=== PATIENT | female | born 2000 | race Caucasian/White ===

== ENCOUNTER 2021-09-05 09:02 | Inpatient (IN) ==
[2021-09-05] MEDS ORDERED: SODIUM CHLORIDE 0.9% 1000ML 1,000 ML IV SCH (09:30)
--- NOTE | 2021-09-05 09:35 | Emergency Department Note ---
History of Present Illness General Chief complaint: Alcohol Intoxication Stated complaint: OVERDOSE, ETOH, MHID Time Seen by Provider: 09/05/21 09:18 Source: patient, EMS, RN notes reviewed, old records reviewed and police Mode of arrival: EMS Limitations: intoxication History of Present Illness This patient is a 21-year-old female who is brought in after apparently taking an overdose intentionally. I talked to police and EMS and they were suicidal notes left. She had been drinking all night and also apparently took 7 sleep aids of diphenhydramine 50 mg at some point they did find some blue pills on the floor and also when she threw up there was some blue tinge to her emesis. She had been drinking alcohol as well. Denies any drug use. Apparently when the roommate saw her shortly before 3 she was okay and found her like this around 8:00 in the morning so the ingestion apparently took place likely sometime between 3 and 8. She denies any drug use. She is unable to give a very reliable history. She mumbles when she talks she seems to answer some questions appropriately but others not she does follow commands. Home Medications Medication Instructions Recorded Confirmed Type spironolactone 100 mg tablet 100 mg PO DAILY 05/05/19 05/05/19 History Allergies Allergy/AdvReac Type Severity Reaction Status Date / Time povidone-iodine Allergy Mild Rash Verified 05/05/19 19:25 [From Betadine] soap [From Betadine] Allergy Mild Rash Verified 05/05/19 19:25 Past Med/Surg History Medical History (Updated 09/05/21 @ 13:32 by Jeremy Abarca MD) No significant medical problems Social History Smoking Status: Unknown if ever smoked Preferred Language: Yoruba Feels Safe at Home: Yes Immunizations: Past medical historydepression. she does have a previous history of self-harm Social historyshgui is a student at [employer] Review of Systems A total of 10 systems reviewed and were otherwise negative Physical Exam Vital Signs Vital Signs - 24 hr 09/05/21 09:15 09/05/21 09:16 09/05/21 09:30 Temperature 36.4 C L Temperature Source Oral Pulse Rate 117 H 114 H 105 H Pulse Rate [Apical] Pulse Rate from SpO2 Sensor 114 H 105 H Pulse Rhythm [Apical] Pulse Strength [Apical] Respiratory Rate 22 22 16 Respiratory Effort / Characteristics Respiratory Depth Respiratory Pattern Blood Pressure 114/94 136/85 Blood Pressure [Left Arm] Blood Pressure Mean 100 102 Blood Pressure Mean [Left Arm] Pulse Oximetry 98 99 99 Oxygen Delivery Method Room Air Room Air Room Air Sepsis New/Unexplained Change in Mental Status No Sepsis Action Taken by Nursing No Action Required 09/05/21 10:00 09/05/21 12:09 09/05/21 14:00 Temperature Temperature Source Pulse Rate 98 H Pulse Rate [Apical] 110 H 99 H Pulse Rate from SpO2 Sensor 96 H Pulse Rhythm [Apical] Regular Pulse Strength [Apical] Normal Respiratory Rate 18 20 20 Respiratory Effort / Characteristics Non-Labored Spontaneous Non-Labored Spontaneous Respiratory Depth Normal Normal Respiratory Pattern Regular Blood Pressure 140/92 Blood Pressure [Left Arm] 124/95 131/81 Blood Pressure Mean 108 Blood Pressure Mean [Left Arm] 104 97 Pulse Oximetry 96 98 97 Oxygen Delivery Method Room Air Room Air Room Air Sepsis New/Unexplained Change in Mental Status Sepsis Action Taken by Nursing General: Well developed well nourished young female who is eyes are open she mumbles when she talks and answers most questions appropriately but others vaguely and incomprehensively. Her mouth does appear somewhat dry. In no acute distress, breathing comfortably on room air. Normal speech HEENT: Normal cephalic atraumatic. Pupils are equal round and reactive to light. Pupils are not dilated. Extraocular movements are intact. Oropharynx is pink with moist mucous membranes. No swelling of the mouth lips or tongue. Neck: Supple with a midline trachea. No meningeal signs or stiffness, no JVD or bruits. No Stridor. Chest: Clear to auscultation bilaterally. No wheezes or rhonchi. No increased work of breathing. Heart: Regular rate and rhythm without murmurs or gallops. Abdomen: Soft nontender, nondistended without rebound guarding or rigidity. Extremities: No cyanosis clubbing or edema. No calf tenderness or assymetry Spine/Back. Non tender to palpation. No CVA tenderness Skin: Good turgor without rashes. No flushing of the skin. Neurologic exam: Cranial nerves two through 12 are intact. Motor and sensation are intact and symmetrical throughout. Procedures Free Text Procedures ED observationthe patient was entered into the observation at 938 due to overdose and need to medically clear. She was placed on a cafeteria monitor. She has no significant family history known. She was observed for multiple hours and remained stable. Her EKG did show a mildly prolonged QT so I talked to poison center who recommended we observe her for 4 hours after I gave her the magnesium 1 g and recheck EKG and blood work as well. Her mental status improved. She will be observed till at least 4 PM. Course Administered Medications Discontinued Medications Sodium Chloride (Nss 1000ml) 1,000 mls @ 999 mls/hr IV .Q1H1M EDWARD Stop: 09/05/21 10:30 Last Infusion: 09/05/21 12:03 Dose: 0 mls/hr Documented by: [id number] Admin: 09/05/21 09:40 Dose: 999 mls/hr Documented by: [id number] Magnesium Sulfate/Dextrose (Magnesium Sulfate / D5w) 1 gm in 100 mls @ 100 mls/hr IV NOW STA Stop: 09/05/21 10:55 Last Infusion: 09/05/21 13:38 Dose: 0 mls/hr Documented by: [id number] Admin: 09/05/21 11:23 Dose: 100 mls/hr Documented by: [id number] Medical Decision Making Differential Diagnosis Overdose, suicidal ideation, aspiration, COVID, electrolyte or metabolic abnormality, acetaminophen toxicity, diphenhydramine/anticholinergic toxicity, toxicologic Medical Records Attestation: I reviewed the patient's medical records. Home Medications Current Medication List: was personally reviewed by me Laboratory Data Attestation: I reviewed the patient's lab results. Result diagrams: 09/05/21 09:38 09/05/21 09:38 Lab Results 09/05/21 09/05/21 09/05/21 Range/Units 09:37 09:38 09:38 WBC (4.8-10.8) K/uL RBC (4.2-5.4) M/uL Hgb (12.0-16.0) g/dL Hct (37-47) % MCV (80-100) fL MCH (25-34) pg MCHC (32-36) g/dL RDW Std Deviation (36.4-46.3) fL RDW Coeff of Fransisca (11.5-14.5) % Plt Count (130-400) K/uL MPV (7.4-10.4) fL Immature Gran % (Auto) % Neut % (Auto) % Lymph % (Auto) % [place] % (Auto) % Eos % (Auto) % Baso % (Auto) % Neut # (Auto) (1.4-6.5) K/uL Lymph # (Auto) (1.2-3.4) K/uL [place] # (Auto) (0.11-0.59) K/uL Eos # (Auto) (0-0.5) K/uL Baso # (Auto) (0-0.2) K/uL Immature Gran # (Auto) (0.00-0.02) K/uL PT (9.0-12.0) Seconds INR (0.9-1.1) APTT (21.0-31.0) Seconds PTT Ratio Sodium (136-145) mmol/L Potassium (3.5-5.1) mmol/L Chloride (98-107) mmol/L Carbon Dioxide (21-32) mmol/L Anion Gap (3-11) BUN (6-23) mg/dl Creatinine (0.6-1.2) mg/dl Est Cr Clr Drug Dosing Est GFR ( Amer) ml/min Est GFR (Non-Af Amer) ml/min BUN/Creatinine Ratio (10-20) Glucose (70-99(Fasting)) mg/dl POC Glucose 103 H (70-99) mg/dl Calcium (8.5-10.1) mg/dl Magnesium (1.7-2.4) mg/dl Total Bilirubin (0.2-1.0) mg/dl AST (13-39) U/L ALT (7-52) U/L Alkaline Phosphatase (34-104) U/L Troponin I (0-0.04) ng/ml Total Protein (6.0-8.3) gm/dl Albumin (3.4-5.0) gm/dl Globulin (2.5-4.0) gm/dl Albumin/Globulin Ratio (0.9-2) HCG, Qual (Negative) Salicylates < 3.0 L (3.0-30) mg/dl Urine Opiates Screen (Neg) Ur Methadone, Qual (Neg) Acetaminophen < 3 L (10-30) ug/ml Urine Barbiturates (Neg) Ur Phencyclidine (PCP) (Neg) U Amphetamin/Meth Scrn (Neg) MDMA (Ecstasy) Screen (Neg) U Benzodiazepines Scrn (Neg) Ur Cocaine Metabolite (Neg) U Marijuana (THC) Screen (Neg) Ethyl Alcohol mg/dL 138.4 H (<10.0) mg/dl SARS-CoV-2, RNA, NAAT (NEGATIVE) 09/05/21 09/05/21 09/05/21 Range/Units 09:38 09:38 09:38 WBC 3.33 L (4.8-10.8) K/uL RBC 4.31 (4.2-5.4) M/uL Hgb 13.7 (12.0-16.0) g/dL Hct 39.9 (37-47) % MCV 92.6 (80-100) fL MCH 31.8 (25-34) pg MCHC 34.3 (32-36) g/dL RDW Std Deviation 46.7 H (36.4-46.3) fL RDW Coeff of Fransisca 13.6 (11.5-14.5) % Plt Count 234 (130-400) K/uL MPV 9.5 (7.4-10.4) fL Immature Gran % (Auto) 0.0 % Neut % (Auto) 55.0 % Lymph % (Auto) 39.6 % [place] % (Auto) 4.5 % Eos % (Auto) 0.6 % Baso % (Auto) 0.3 % Neut # (Auto) 1.83 (1.4-6.5) K/uL Lymph # (Auto) 1.32 (1.2-3.4) K/uL [place] # (Auto) 0.15 (0.11-0.59) K/uL Eos # (Auto) 0.02 (0-0.5) K/uL Baso # (Auto) 0.01 (0-0.2) K/uL Immature Gran # (Auto) 0.00 (0.00-0.02) K/uL PT (9.0-12.0) Seconds INR (0.9-1.1) APTT (21.0-31.0) Seconds PTT Ratio Sodium 142 (136-145) mmol/L Potassium 3.6 (3.5-5.1) mmol/L Chloride 113 H (98-107) mmol/L Carbon Dioxide 24 (21-32) mmol/L Anion Gap 5 (3-11) BUN 7 (6-23) mg/dl Creatinine 0.54 L (0.6-1.2) mg/dl Est Cr Clr Drug Dosing Not Reportable Est GFR ( Amer) > 150.0 ml/min Est GFR (Non-Af Amer) 135.8 ml/min BUN/Creatinine Ratio 13.0 (10-20) Glucose 96 (70-99(Fasting)) mg/dl POC Glucose (70-99) mg/dl Calcium 8.3 L (8.5-10.1) mg/dl Magnesium (1.7-2.4) mg/dl Total Bilirubin 0.3 (0.2-1.0) mg/dl AST 16 (13-39) U/L ALT 10 (7-52) U/L Alkaline Phosphatase 20 L (34-104) U/L Troponin I < 0.03 (0-0.04) ng/ml Total Protein 7.2 (6.0-8.3) gm/dl Albumin 4.4 (3.4-5.0) gm/dl Globulin 2.8 (2.5-4.0) gm/dl Albumin/Globulin Ratio 1.6 (0.9-2) HCG, Qual Negative (Negative) Salicylates (3.0-30) mg/dl Urine Opiates Screen (Neg) Ur Methadone, Qual (Neg) Acetaminophen (10-30) ug/ml Urine Barbiturates (Neg) Ur Phencyclidine (PCP) (Neg) U Amphetamin/Meth Scrn (Neg) MDMA (Ecstasy) Screen (Neg) U Benzodiazepines Scrn (Neg) Ur Cocaine Metabolite (Neg) U Marijuana (THC) Screen (Neg) Ethyl Alcohol mg/dL (<10.0) mg/dl SARS-CoV-2, RNA, NAAT (NEGATIVE) 09/05/21 09/05/21 09/05/21 Range/Units 09:38 09:38 09:43 WBC (4.8-10.8) K/uL RBC (4.2-5.4) M/uL Hgb (12.0-16.0) g/dL Hct (37-47) % MCV (80-100) fL MCH (25-34) pg MCHC (32-36) g/dL RDW Std Deviation (36.4-46.3) fL RDW Coeff of Fransisca (11.5-14.5) % Plt Count (130-400) K/uL MPV (7.4-10.4) fL Immature Gran % (Auto) % Neut % (Auto) % Lymph % (Auto) % [place] % (Auto) % Eos % (Auto) % Baso % (Auto) % Neut # (Auto) (1.4-6.5) K/uL Lymph # (Auto) (1.2-3.4) K/uL [place] # (Auto) (0.11-0.59) K/uL Eos # (Auto) (0-0.5) K/uL Baso # (Auto) (0-0.2) K/uL Immature Gran # (Auto) (0.00-0.02) K/uL PT 10.7 (9.0-12.0) Seconds INR 1.1 (0.9-1.1) APTT 24.2 (21.0-31.0) Seconds PTT Ratio 0.9 Sodium (136-145) mmol/L Potassium (3.5-5.1) mmol/L Chloride (98-107) mmol/L Carbon Dioxide (21-32) mmol/L Anion Gap (3-11) BUN (6-23) mg/dl Creatinine (0.6-1.2) mg/dl Est Cr Clr Drug Dosing Est GFR ( Amer) ml/min Est GFR (Non-Af Amer) ml/min BUN/Creatinine Ratio (10-20) Glucose (70-99(Fasting)) mg/dl POC Glucose (70-99) mg/dl Calcium (8.5-10.1) mg/dl Magnesium 2.0 (1.7-2.4) mg/dl Total Bilirubin (0.2-1.0) mg/dl AST (13-39) U/L ALT (7-52) U/L Alkaline Phosphatase (34-104) U/L Troponin I (0-0.04) ng/ml Total Protein (6.0-8.3) gm/dl Albumin (3.4-5.0) gm/dl Globulin (2.5-4.0) gm/dl Albumin/Globulin Ratio (0.9-2) HCG, Qual (Negative) Salicylates (3.0-30) mg/dl Urine Opiates Screen (Neg) Ur Methadone, Qual (Neg) Acetaminophen (10-30) ug/ml Urine Barbiturates (Neg) Ur Phencyclidine (PCP) (Neg) U Amphetamin/Meth Scrn (Neg) MDMA (Ecstasy) Screen (Neg) U Benzodiazepines Scrn (Neg) Ur Cocaine Metabolite (Neg) U Marijuana (THC) Screen (Neg) Ethyl Alcohol mg/dL (<10.0) mg/dl SARS-CoV-2, RNA, NAAT NEGATIVE (NEGATIVE) 09/05/21 Range/Units 10:35 WBC (4.8-10.8) K/uL RBC (4.2-5.4) M/uL Hgb (12.0-16.0) g/dL Hct (37-47) % MCV (80-100) fL MCH (25-34) pg MCHC (32-36) g/dL RDW Std Deviation (36.4-46.3) fL RDW Coeff of Fransisca (11.5-14.5) % Plt Count (130-400) K/uL MPV (7.4-10.4) fL Immature Gran % (Auto) % Neut % (Auto) % Lymph % (Auto) % [place] % (Auto) % Eos % (Auto) % Baso % (Auto) % Neut # (Auto) (1.4-6.5) K/uL Lymph # (Auto) (1.2-3.4) K/uL [place] # (Auto) (0.11-0.59) K/uL Eos # (Auto) (0-0.5) K/uL Baso # (Auto) (0-0.2) K/uL Immature Gran # (Auto) (0.00-0.02) K/uL PT (9.0-12.0) Seconds INR (0.9-1.1) APTT (21.0-31.0) Seconds PTT Ratio Sodium (136-145) mmol/L Potassium (3.5-5.1) mmol/L Chloride (98-107) mmol/L Carbon Dioxide (21-32) mmol/L Anion Gap (3-11) BUN (6-23) mg/dl Creatinine (0.6-1.2) mg/dl Est Cr Clr Drug Dosing Est GFR ( Amer) ml/min Est GFR (Non-Af Amer) ml/min BUN/Creatinine Ratio (10-20) Glucose (70-99(Fasting)) mg/dl POC Glucose (70-99) mg/dl Calcium (8.5-10.1) mg/dl Magnesium (1.7-2.4) mg/dl Total Bilirubin (0.2-1.0) mg/dl AST (13-39) U/L ALT (7-52) U/L Alkaline Phosphatase (34-104) U/L Troponin I (0-0.04) ng/ml Total Protein (6.0-8.3) gm/dl Albumin (3.4-5.0) gm/dl Globulin (2.5-4.0) gm/dl Albumin/Globulin Ratio (0.9-2) HCG, Qual (Negative) Salicylates (3.0-30) mg/dl Urine Opiates Screen Neg (Neg) Ur Methadone, Qual Neg (Neg) Acetaminophen (10-30) ug/ml Urine Barbiturates Neg (Neg) Ur Phencyclidine (PCP) Neg (Neg) U Amphetamin/Meth Scrn Neg (Neg) MDMA (Ecstasy) Screen Neg (Neg) U Benzodiazepines Scrn Neg (Neg) Ur Cocaine Metabolite Neg (Neg) U Marijuana (THC) Screen Neg (Neg) Ethyl Alcohol mg/dL (<10.0) mg/dl SARS-CoV-2, RNA, NAAT (NEGATIVE) Imaging Data Attestation: I personally reviewed and interpreted this imaging study as follows: My Impression: Chest x-rayno acute infiltrate, failure, pneumothorax seen Radiologist's Impression: Chest X-Ray 09/05/21 09:26 SINGLE VIEW CHEST CLINICAL HISTORY: Overdose. Change in mental status. FINDINGS: An AP, portable, upright chest radiograph is obtained. No prior studies are available for comparison at the time of dictation. The cardiomediastinal silhouette is unremarkable. The lungs and pleural spaces are clear. No pneumothorax is seen. The bony thorax is grossly intact. IMPRESSION: No active disease in the chest. ACT 112: Negative or not required by law. Electronically signed by: Eulalio Anthony M.D. 09/05/2021 9:50 AM ECG Data Attestation: I personally reviewed and interpreted this ECG as follows: Indication: + toxicologic Rate (beats per minute): 108 Rhythm: + sinus tachycardia ECG Intervals/blocks: + Normal QRS, + Prolonged QT and + Normal [place] ECG ST segments: + Nonspecific ST abnormalities ECG Findings: no PACs or no PVCs Comparison ECG Date: no prior available MDM Narrative This patient comes in after apparently taking an intentional overdose. There was a suicidal notes left. She has stable vital signs she is only mildly tachycardic. She did take several sleep aids which contain Benadryl. A full toxicologic type work-up was done. Despite taking the Benadryl she does not appear to be significantly anticholinergic her pupils are not enlarged, she has no flushing of the skin. it is somewhat difficult to understand her speech which may be related to intoxication with alcohol and/or Benadryl and also a dry mouth. It is possible there are other coingestions as well. She was placed on a cardiac cafeteria monitor, IV access was established EKG and multiple blood testing was obtained for medical treatment and clearance. Blood alcohol was elevated at 138. There is nothing to suggest coingestions of Tylenol or aspirin with negative levels. EKG shows a mildly prolonged QT with a normal QRS. In light of the prolonged QT I did give 1 g of magnesium IV. She continued to be monitored. The rest of her blood work was unremarkable she looks well and is sobering up. Every time I check her she seems a lot better she was able ambulate her speech is now better. She denies that she was trying to hurt her self but we do have suicide notes. I did talk to the poison center and they recommended that we recheck a an EKG and magnesium level 4 hours after the mag was given and they feel that she needs to be monitored for 6 to 8 hours for the diphenhydramine. These will be done around 4 as a magnesium finished around noon. The patient will be signed out to Dr. Camarena who will follow-up on these and at that time she will likely be medically cleared to be further evaluated by mental health. The mother did show up and I talked her at length. The patient is doing much better she is no longer shaky her thought process has normalized. I also talked to her psychiatric family caseworker who will see her as well. Continuous cardiac monitoring: Orders placed in EMR for continuous cardiac monitoring. Upon my interpretation the patient was noted to be in sinus tachycardia with a rate of 105 Impression & Plan Overdose, Alcoholic intoxication, Depression, QT prolongation Discharge Plan Visit Data Chief Complaint: Alcohol Intoxication Stated Complaint: OVERDOSE, ETOH, MHID ED Provider: Jeremy Abarca Discharge Problem: Overdose, Alcoholic intoxication, Depression, QT prolongation Forms Stand Alone Forms: My [facility] [employer] Prescriptions Prescriptions: No Action spironolactone 100 mg Tablet 100 mg PO DAILY RF: 0 Referrals Referrals: PCP,NO [Physician] - Discharge Problem: Overdose Qualifiers: Encounter type: initial encounter Injury intent: intentional self-harm Qualified Code(s): T50.902A - Poisoning by unspecified drugs, medicaments and biological substances, intentional self-harm, initial encounter Alcoholic intoxication Qualifiers: Complication of substance-induced condition: uncomplicated Qualified Code(s): F10.920 - Alcohol use, unspecified with intoxication, uncomplicated Depression Qualifiers: Depression Type: unspecified Qualified Code(s): F32.A - Depression, unspecified
[2021-09-05 09:50] LABS: Basophils # (auto) 0.01 K/uL (0-0.2); Basophils % (auto) 0.3 %; Eosinophils # (auto) 0.02 K/uL (0-0.5); Eosinophils % (auto) 0.6 %; Hematocrit (blood only) 39.9 % (37-47); Hemoglobin 13.7 g/dL (12.0-16.0); Lymphocytes # (auto) 1.32 K/uL (1.2-3.4); Lymphocytes % (auto) 39.6 %; Mean Corpuscular Hemoglobin 31.8 pg (25-34); Mean Corpuscular Hgb Conc 34.3 g/dL (32-36); Mean Corpuscular Volume 92.6 fL (80-100); Mean Platelet Volume 9.5 fL (7.4-10.4); Monocytes # (auto) 0.15 K/uL (0.11-0.59); Monocytes % (auto) 4.5 %; Neutrophils # (auto) 1.83 K/uL (1.4-6.5); Platelet Count 234 K/uL (130-400); RDW Coefficient of Variation 13.6 % (11.5-14.5); RDW Standard Deviation 46.7 fL (36.4-46.3); Red Blood Count 4.31 M/uL (4.2-5.4); White Blood Count 3.33 K/uL (4.8-10.8)
--- NOTE | 2021-09-05 09:51 | XRay Report ---
SINGLE VIEW CHEST CLINICAL HISTORY: Overdose. Change in mental status. FINDINGS: An AP, portable, upright chest radiograph is obtained. No prior studies are available for c omparison at the time of dictation. The cardiomediastinal silhouette is unremarkable. The lungs and pleural spaces are clear. No pneumothorax is seen. The bony thorax is grossly intact. IMPRESSION: No active disease in the chest. ACT 112: Negative or not required by law. Electronically signed by: Eulalio Anthony M.D. 09/05/2021 9:50 AM
[2021-09-05 09:55] LABS: Pregnancy Test, Serum Negative (Negative)
[2021-09-05] MEDS ORDERED: MAGNESIUM SULFATE / D5W 1 GM/100 ML BAG IV STA (09:56)
[2021-09-05 10:00] LABS: INR 1.1 (0.9-1.1); Partial Thromboplastin Ratio 0.9; Partial Thromboplastin Time 24.2 Seconds (21.0-31.0); Prothrombin Time 10.7 Seconds (9.0-12.0)
[2021-09-05 10:07] LABS: Acetaminophen < 3 ug/ml (10-30); Salicylate < 3.0 mg/dl (3.0-30)
[2021-09-05 10:10] LABS: Troponin I < 0.03 ng/ml (0-0.04)
[2021-09-05 10:13] LABS: Alanine Aminotransferase 10 U/L (7-52); Albumin Globulin Ratio 1.6 (0.9-2); Albumin Level 4.4 gm/dl (3.4-5.0); Alkaline Phosphatase 20 U/L (34-104); Anion Gap 5 (3-11); Aspartate Aminotransferase 16 U/L (13-39); Bilirubin,Total 0.3 mg/dl (0.2-1.0); Blood Urea Nitrogen 7 mg/dl (6-23); Calcium 8.3 mg/dl (8.5-10.1); Carbon Dioxide 24 mmol/L (21-32); Chloride 113 mmol/L (98-107); Est GFR (African American) > 150.0 ml/min; Est GFR (Non-African American) 135.8 ml/min; Globulin 2.8 gm/dl (2.5-4.0); Glucose 96 mg/dl (70-99(Fasting)); Potassium 3.6 mmol/L (3.5-5.1); Sodium 142 mmol/L (136-145); Total Protein 7.2 gm/dl (6.0-8.3)
[2021-09-05 11:10] LABS: Amphetamines+Metham, Urine Neg (Neg); Barbiturates, Urine Neg (Neg); Benzodiazepine, Urine Neg (Neg); Cocaine, Urine Neg (Neg); MDMA (Ecstacy), Urine Neg (Neg); Methadone, Urine Neg (Neg); Opiate, Urine Neg (Neg); Phencyclidine, Urine Neg (Neg)
--- NOTE | 2021-09-05 15:16 | Emergency Department Note ---
ED Visit Note Received this patient in signout. See Dr. Abarca's note for full details. In brief, the patient evidently had some alcohol last night and attempted overdose on Benadryl tablets and was found with a suicide note by friends. Please have been involved. Basic labs obtained previously and monitored here medically. In consultation with the Poison Control Center repeat EKG and magnesium level were obtained after period of observation this afternoon. EKG with improving heart rate as well as QTC. Patient will require inpatient psychiatric care given the gravity of the findings today and concerns for self-injurious behavior. Case management was involved with placement options. Patient's mother was present. Patient was accepted to [facility] [address] for further inpatient psychiatric care. EK bpm normal sinus rhythm. No PVC or PAC. No acute ST segment elevation or depression with a QTC of 479. . : Overdose Qualifiers: Encounter type: initial encounter Injury intent: intentional self-harm Qualified Code(s): T50.902A - Poisoning by unspecified drugs, medicaments and biological substances, intentional self-harm, initial encounter Alcoholic intoxication Qualifiers: Complication of substance-induced condition: uncomplicated Qualified Code(s): F10.920 - Alcohol use, unspecified with intoxication, uncomplicated Depression Qualifiers: Depression Type: unspecified Qualified Code(s): F32.A - Depression, unspecified
[2021-09-05] MEDS ORDERED: BISMUTH SUBSALICYLATE LIQD 236 ML PO PRN (18:17)
[2021-09-05] MEDS ORDERED: ACETAMINOPHEN 325 MG TAB PO PRN (18:17)
[2021-09-05] MEDS ORDERED: MAGNESIUM HYDROXIDE SUSP 30 ML UDC PO PRN (18:17)
[2021-09-05] MEDS ORDERED: SODIUM CHLORIDE 0.65% NA SOLN 45 ML (OCEAN) PRN (18:17)
[2021-09-05] MEDS ORDERED: hydrOXYzine HCl 25 MG TAB PO PRN ×2 (18:17)
[2021-09-05] MEDS ORDERED: ALUMINUM/MAGNESIUM SUSP 30 ML UDC PO PRN (18:17)
[2021-09-05 18:22] VITALS: O2SAT 96
--- NOTE | 2021-09-06 07:25 | Electrocardiogram Report ---
Test Reason : Blood Pressure : / mmHG Vent. Rate : 108 BPM Atrial Rate : 108 BPM P-R Int : 166 ms QRS Dur : 100 ms QT Int : 384 ms P-R-T Axes : 073 087 019 degrees QTc Int : 514 ms Sinus tachycardia Possible Left atrial enlargement Incomplete right bundle branch block Nonspecific ST and T wave abnormality Abnormal ECG No previous ECGs available Confirmed by Melo Sadler ([id number]) on 09/06/2021 7:25:37 AM Referred By: Confirmed By:Lino Sadler
--- NOTE | 2021-09-06 07:31 | Electrocardiogram Report ---
Test Reason : Blood Pressure : / mmHG Vent. Rate : 084 BPM Atrial Rate : 084 BPM P-R Int : 156 ms QRS Dur : 098 ms QT Int : 406 ms P-R-T Axes : 064 079 054 degrees QTc Int : 479 ms Normal sinus rhythm Possible Left atrial enlargement Incomplete right bundle branch block Nonspecific T wave abnormality Prolonged QT Abnormal ECG When compared with ECG of 05-SEP-2021 09:40, (unconfirmed) ST no longer depressed in Lateral leads Confirmed by Melo Sadler ([id number]) on 09/06/2021 7:31:06 AM Referred By: REFERRED SELF Confirmed By:Lino Sadler
--- NOTE | 2021-09-06 10:39 | History & Physical ---
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 Diagnostically consistent with MDD with seasonal component as well as alcohol use disorder binge drinking pattern and social anxiety disorder. The patient is deemed unstable and requires psychiatric hospitalization for diagnostic clarification, safety and stabilization, medication management and development of further coping skills. The patient's audit score use history suggests problematic substance use. Brief intervention was offered and accepted. Intervention was greater than 5 minutes in length and included assessing readiness to quit, advice on how to reduce or abstain and to set a specific goal for this hospitalization. fast foods worker will also assist in anticipating barriers to reducing or abstaining from substance use and in problem-solving for solutions to those problems while arranging for referral to appropriate treatment. The patient is in action stage with regards to transtheoretical model of change. The patient is advised to decrease consumption due to depressant effects and risk of interaction with prescription medications. The patient agreed to reduce her intake of alcohol and will be provided with recovery materials to continue to educate self on how to cope with their condition without using substances. We also reviewed that naltrexone could be used to help reduce alcohol consumption if she struggles to cut down on her use and needs additional help. Reviewed treatment options in detail. Discussed using a bright light lamp to help with seasonal mood symptoms. Also discussed importance of therapy which she agreeable to. Also discussed medication options including SSRIs, mirtazapine, trazodone or Wellbutrin to treat depression, anxiety and nicotine use. At this time she does not want to start medication for her mood symptoms. Reviewed that should she become interested we can continue discussion of risks and benefits. She is agreeable to trying melatonin for help with insomnia. At this point I feel she can refuse medication given that some of her depressive symptoms are more atypical and may have contribution from alcohol use and difficulty discussing emotions. Also reasonable given elevated QTc in setting of recent overdose. Will focus on therapy and coping skills interventions for now. (1) Major depressive disorder, recurrent episode with seasonal pattern: (2) Alcohol dependence, binge pattern: 09/06/21: The patient was admitted to the [facility] ([facility] unit) on q15 min checks (behavioral with suicide precautions) for safety. The patient will participate in group, recreational, and milieu therapies and will be offer ed additional individual and family sessions as clinically appropriate. -melatonin 3 mg qhs prn for insomnia -nicotine replacement gum prn -therapy referrals -safety planning -continue motivational interviewing regarding alcohol use -repeat EKG on 09/08 to ensure trending improvement in QTc Inventory Assets Strengths: close friends, likes school, supportive family Needs: outpatient therapy, additional coping skills, substance use treatment Risk Factors Assessment Acute risk is high given suicide attempt and mood symptoms. Chronic risk is low to moderate. Most significant modifiable risk factor is addressing mood symptoms and reducing or eliminating alcohol use. : Yes Do You Have Access To A Gun?: No Health Problems: No Mental Health Diagnoses: Yes Substance Use Disorders: Yes Previous Attempt: Yes Family History of Suicide: No Previous Psychiatric Hospitalization: No Hopelessness: No Protective Factors Assessment Employed: Yes Stable Relationships: Yes Supportive Family: Yes Psychiatric History Identifying Data SIDNEY DEL REAL is a 21-year-old woman and [employer] who currently lives in an off-campus apartment, has a history of depression and anxiety, and was admitted on 09/05/21 18:17 on a 201 voluntary commitment for suicide attempt via overdose of alcohol and diphenhydramine. Chief Complaint "I'm not exactly sure what happened, I can't remember anything after Tuesday night at the [employer]". History of Present Illness Sidney presents for psychiatric admission after a suicide attempt. She recalls going to a friend's birthday [employer] on Tuesday night and drinking her usual amount of alcohol with friends but then cannot recall returning to her apartment or the events that subsequently transpired. Based on discussions after arriving to the ED she understands that she returned to her apartment early on Tuesday morning after drinking and then in the morning she was found by her roommate and was throwing up and choking so her roommate called 911. On arrival police and paramedics found that Sidney had written various suicide notes on post-its beside her bed and stated she had taken approximately 7-10 tabs of an OTC sleep aid containing diphenhydramine. On assessment in the ED after she became clinically sober and medically stabilized she endorsed some symptoms of depression including tearfulness, helplessness/hopelessness, low self-esteem, poor functioning and decreased motivation. Today she describes feeling "overwhelmed and stressed" from the attempt and becomes tearful describing feeling "guilty" for putting her friends and family through the fear and scariness of her attempt. She does not recall the content of the suicide notes nor have any more recollections regarding the attempt. She notes she has no idea what may have prompted it as she doesn't recall any specific stressors or triggers besides being intoxicated. She endorses some depression, which gets worse in the winter months, but states "it's not 24/7". Today denies hopelessness, helplessness but does endorse symptoms of worthlessness, periods of guilt, insomnia, variable appetite. Denies changes in interest, concentration, energy level, nor motivation. She recalls one prior episode of SI which was passive and occurred about 2 months ago after a friend was talking her own SI. She was able to distract herself by spending time with friends and it went away. She denies any prior attempts. Reviewed that a roommate had shared with emergency responders that about 1 month ago she took the screen out of her third floor window while intoxicated and was talking about considering jumping. She did not know that this had occurred. She identifies the only recent stressors as colder weather and an unexpected break-up about 3 months ago with her boyfriend who was a big emotional support. She also notes difficulty talking about her emotions and that "it's hard to put words to what I'm feeling". Psychiatric ROS notable for no hx lise, no hx lise, no hx OCD, hx social anxiety, hx panic attacks (last in high school), no hx trauma, no hx psychosis, no hx eating disorder. Past Psychiatric History Previous Psych History: none Outpatient Services: none Previous Psych Admissions: n/a Do You Have Access To A Gun?: No History of Previous Suicide Attempt: No Past Medication Trials: none Past Head Trauma/Neuro History History of Concussion/Seizure: No Allergies Allergy/AdvReac Type Severity Reaction Status Date / Time povidone-iodine Allergy Mild Rash Verified 05/05/19 19:25 [From Betadine] soap [From Betadine] Allergy Mild Rash Verified 05/05/19 19:25 Home Medications Medication Instructions Recorded Confirmed Type spironolactone 100 mg tablet 100 mg PO DAILY 05/05/19 05/05/19 History Family History Family History of: None Alcohol History Hx of Alcohol Use Over the Past 12 Months: Yes (2x weekly) AUDIT Total Score: 9 Smoking Use tobacco type: e-cigarettes Smoking Status: Current every day smoker (vapes) Substance History Hx of Prescription Med Misuse Over the Past 12 Months: No Hx of Over the Counter Med Misuse Over the Past 12 Months: No Hx of Inhalent Misuse Over the Past 12 Months: No Hx of Organic Substance Use Over the Past 12 Months: No Hx of Illegal Substances/Street Drug Use Over Past 12 Months: No Problems as a Result of Past Substance Use: None Identified Personal History Living Arrangements: Apartment Childhood: Grew up in [place] and then [place]. 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 Required: No Beliefs That Will Affect Care: None Feels Safe at Home: Yes Assistive Devices: None Review of Systems Review of Systems: All systems reviewed & are unremarkable except as noted in HPI & below Physical Exam Psychiatric: Orientation: alert Apperance: appropriately dressed and appropriately groomed Eye Contact: good eye contact Motor Behavior: no abnormal motor movements Speech: normal rate/rhythm/volume of speech Affect: + tearful affect Mood: + depressed mood and + anxious mood Thought Process: goal directed thought process Thought Content: reality based without delusions Suicidal Thoughts: denies suicidal thoughts Homicidal Thoughts: denies homicidal thoughts Hallucinations: no auditory hallucinations and no visual hallucinations Cognition: remote memory grossly intact, attention grossly intact and language grossly intact; + recent memory not intact Estimated Intelligence: consistent with education level Insight: + fair insight Judgement: + fair judgement Vital Signs (Past 24 Hours): Last Vital Signs Temp 36.8 C 09/06/21 06:32 Pulse 80 09/06/21 06:33 Resp 16 09/06/21 06:32 BP 105/72 09/06/21 06:33 Pulse Ox 96 09/05/21 18:21 Exam Statement: A physical exam was performed in the ED by Dr. Abarca for the purposes of medical clearance. I accept that physical as correct and adequate for the purposes of the inpatient physical exam. Results & Data ([facility]) Laboratory Results Laboratory Results - last 24 hr 09/05/21 09/05/21 09/05/21 09:38 10:35 16:03 Magnesium 2.0 2.0 Urine Opiates Screen Neg Ur Methadone, Qual Neg Urine Barbiturates Neg Ur Phencyclidine (PCP) Neg U Amphetamin/Meth Scrn Neg MDMA (Ecstasy) Screen Neg U Benzodiazepines Scrn Neg Ur Cocaine Metabolite Neg U Marijuana (THC) Screen Neg Diagnostic Findings Reviewed EKG, QTc 479 Current Inpatient Medications Current Inpatient Medications: Current Inpatient Medications Acetaminophen (Acetaminophen 325 Mg Tab) 650 mg PO Q4H PRN PRN Reason: Headache or Minor Fever Stop: 10/05/21 18:16 Al Hydrox/Mg Hydrox/Simethicone (Aluminum/Magnesium Susp 30 Ml Udc) 30 ml PO Q 4H PRN PRN Reason: GI Upset Stop: 10/05/21 18:16 Bismuth Subsalicylate (Bismuth Subsalicylate Liqd 236 Ml) 15 ml PO PRN PRN PRN Reason: Loose Stool Stop: 10/05/21 18:16 Hydroxyzine HCl (Hydroxyzine Hcl 25 Mg Tab) 50 mg PO HSZ PRN PRN Reason: Insomnia Stop: 10/05/21 18:16 Hydroxyzine HCl (Hydroxyzine Hcl 25 Mg Tab) 25 mg PO Q4H PRN PRN Reason: Anxiety Stop: 10/05/21 18:16 Magnesium Hydroxide (Magnesium Hydroxide Susp 30 Ml Udc) 30 ml PO DAILY PRN PRN Reason: Constipation Stop: 10/05/21 18:16 Sodium Chloride (Sodium Chloride 0.65% Na Soln 45 Ml ([place])) 1 - 2 sprays NA PRN PRN PRN Reason: Nasal Dryness/Congestion Stop: 10/05/21 18:16
[2021-09-06] MEDS ORDERED: NICOTINE POLACRILEX 2 MG GUM MT PRN (12:03)
[2021-09-06] MEDS ORDERED: MELATONIN 3 MG TAB PO PRN (12:03)
--- NOTE | 2021-09-07 15:23 | Psychiatric Progress Note ---
Date of Service September 07, 2021 Impression / Recommendations Impression The patient is a 21 year old [employer] student with no psychiatric history who was admitted for depression and suicide attempt via alcohol and diphenhydramine ingestion. Diagnostically consistent with MDD with seasonal component as well as alcohol use disorder binge drinking pattern and social anxiety disorder. The patient is deemed unstable and requires psychiatric hospitalization for diagnostic clarification, safety and stabilization, medication management and development of further coping skills. 09/07/21: Mood slowly improving and no current SI, remains isolative which could be from her social anxiety but also still tearful intermittently. Family meeting scheduled for tomorrow. She declines medications. Working to set up outpatient therapy. Continuing to do motivational interviewing regarding alcohol use and how this impacts her mood and decision making. (1) Major depressive disorder, recurrent episode with seasonal pattern: (2) Alcohol dependence, binge pattern: 09/07/21: Working on coping skills and healthy ways to express emotions. Completed safety plan. Willing to cut down and limit her alcohol use. 09/06/21: The patient was admitted to the [facility] ([facility] mental health unit) on q15 min checks (behavioral with suicide precautions) for safety. The patient will participate in group, recreational, and milieu therapies and will be offere d additional individual and family sessions as clinically appropriate. -melatonin 3 mg qhs prn for insomnia -nicotine replacement gum prn -therapy referrals -safety planning -continue motivational interviewing regarding alcohol use -repeat EKG on 09/08 to ensure trending improvement in QTc Inventory Assets Strengths: close friends, likes school, supportive family Needs: outpatient therapy, additional coping skills, substance use treatment Risk Factors Assessment : Yes Do You Have Access To A Gun?: No Health Problems: No Mental Health Diagnoses: Yes Substance Use Disorders: Yes Previous Attempt: Yes Family History of Suicide: No Previous Psychiatric Hospitalization: No Hopelessness: No Protective Factors Assessment Employed: Yes Stable Relationships: Yes Supportive Family: Yes Interval History Identifying Information SIDNEY DEL REAL is a 21-year-old woman and [employer] who currently lives in an off-campus apartment, has a history of depression and anxiety, and was admitted on 09/05/21 18:17 on a 201 voluntary commitment for suicide attempt via overdose of alcohol and diphenhydramine. Chief Complaint "I'm feeling a bit better". Review of Systems Sleep Information Total Hours of Sleep: 7.75 Sleep Comments: pt on q-15 minute checks Meal Information Percent Meal Consumed - Breakfast: 0 Percent Meal Consumed - Lunch: 100 Percent Meal Consumed - Dinner: 100 Subjective Subjective Patient was seen & assessed and interval progress reviewed with treatment team nursing and social work. Isolative to her room but has been engaging one-on-one with staff. She reports improving mood and denies any current SI. Discussed role of alcohol and she is motivated to avoid or limit alcohol use after discharge. She remains in agreement with plan for outpatient therapy, is not interested in starting any medications for mood or anxiety or alcohol use as she feels she will be able to avoid or limit her intake and feels her friends will be supportive of this. Feels she is well supported in terms of her eating and declines resources for eating disorder support after discharge, reviewed that [employer] program is a good resource should she later feel she needs more support. Feels she is becoming more comfortable with being on the unit and social anxiety is lessening a bit. Physical Exam Psychiatric Orientation: alert Apperance: appropriately dressed and appropriately groomed Eye Contact: good eye contact Motor Behavior: no abnormal motor movements Speech: normal rate/rhythm/volume of speech Affect: + tearful affect Mood: + depressed mood and + anxious mood Thought Process: goal directed thought process Thought Content: reality based without delusions Suicidal Thoughts: denies suicidal thoughts Homicidal Thoughts: denies homicidal thoughts Hallucinations: no auditory hallucinations and no visual hallucinations Cognition: recent memory grossly intact, remote memory grossly intact, attention grossly intact and language grossly intact Estimated Intelligence: consistent with education level Insight: + fair insight Judgement: + fair judgement Vital Signs (Past 24 Hours) Last Vital Signs Temp 36.9 C 09/07/21 06:42 Pulse 99 H 09/07/21 06:43 Resp 16 09/07/21 06:42 BP 115/76 09/07/21 06:43 Pulse Ox 96 09/05/21 18:21 Results & Data ([facility]) Current Inpatient Medications Current Inpatient Medications: Current Inpatient Medications Acetaminophen (Acetaminophen 325 Mg Tab) 650 mg PO Q4H PRN PRN Reason: Headache or Minor Fever Stop: 10/05/21 18:16 Al Hydrox/Mg Hydrox/Simethicone (Aluminum/Magnesium Susp 30 Ml Udc) 30 ml PO Q4H PRN PRN Reason: GI Upset Stop: 10/05/21 18:16 Bismuth Subsalicylate (Bismuth Subsalicylate Liqd 236 Ml) 15 ml PO PRN PRN PRN Reason: Loose Stool Stop: 10/05/21 18:16 Hydroxyzine HCl (Hydroxyzine Hcl 25 Mg Tab) 50 mg PO HSZ PRN PRN Reason: Insomnia Stop: 10/05/21 18:16 Hydroxyzine HCl (Hydroxyzine Hcl 25 Mg Tab) 25 mg PO Q4H PRN PRN Reason: Anxiety Stop: 10/05/21 18:16 Magnesium Hydroxide (Magnesium Hydroxide Susp 30 Ml Udc) 30 ml PO DAILY PRN PRN Reason: Constipation Stop: 10/05/21 18:16 Melatonin (Melatonin 3 Mg Tab) 3 mg PO HS PRN PRN Reason: Sleep Stop: 10/06/21 12:02 Nicotine Polacrilex (Nicotine Polacrilex 2 Mg Gum) 1 piece MT PRN PRN PRN Reason: nicotine craving Stop: 10/06/21 12:02 Last Admin: 09/06/21 18:01 Dose: 1 piece Documented by: Sodium Chloride (Sodium Chloride 0.65% Na Soln 45 Ml ([place])) 1 - 2 sprays NA PRN PRN PRN Reason: Nasal Dryness/Congestion Stop: 10/05/21 18:16 Mental Health & Subst Abuse Tx Therapist Name of Therapist: B[facility] Therapist's Date of Therapist Appointment: 09/14/21 Time of Therapist Appointment: 4:30 p.m. Therapy Appointment Comment: In office - [address] [place] [address], [address], [place] Post Discharge Appointments Primary Care Physician Name Of Family Doctor: [facility] Date of Appointment with PCP: 09/15/21 Time of Appointment with PCP: 11am Provider Appointment Comment: [facility] Contact Information Discharge Discharge Address: [address] [place] [address], [place] [address]
--- NOTE | 2021-09-08 12:23 | Electrocardiogram Report ---
Test Reason : Blood Pressure : / mmHG Vent. Rate : 065 BPM Atrial Rate : 065 BPM P-R Int : 138 ms QRS Dur : 098 ms QT Int : 414 ms P-R-T Axes : 056 090 077 degrees QTc Int : 430 ms Normal sinus rhythm Rightward axis Incomplete right bundle branch block Borderline ECG When compared with ECG of 05-SEP-2021 15:59, Nonspecific T wave abnormality no longer evident in Inferior leads T wave inversion no longer evident in Anterior leads QT has shortened Confirmed by Melo Sadler ([id number]) on 09/08/2021 12:22:37 PM Referred By: REFERRED SELF Confirmed By:Lino Sadler
--- NOTE | 2021-09-08 15:30 | Psychiatric Progress Note ---
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 Diagnostically consistent with MDD with seasonal component as well as alcohol use disorder binge drinking pattern and social anxiety disorder. The patient is deemed unstable and requires psychiatric hospitalization for diagnostic clarification, safety and stabilization, medication management and development of further coping skills. 09/08/21: Mood improving and no SI, less isolative today-participating in groups and individual counseling and brighter affect today with increased self- reflection. She declines medications, continues to prefer trying therapy first. Reviewed medication options, SSRIs, should she desire these in the future and t hat EKG QTc is now normal which is reassuring should she desire to start medication in the future. Continuing motivational interviewing regarding alcohol use which she is motivated to cut down on or avoid completely. (1) Major depressive disorder, recurrent episode with seasonal pattern: (2) Alcohol dependence, binge pattern: 09/08/21: Family meeting held. Continuing to process events leading to attempt and hospitalization and working on CBT skills and coping strategies. Discussed ways to process hospitalization and events with her friends and famil y. EKG completed and QTc now within normal limits. 09/07/21: Working on coping skills and healthy ways to express emotions. Completed safety plan. Willing to cut down and limit her alcohol use. 09/06/21: The patient was admitted to the [facility] ([facility] mental health unit) on q15 min checks (behavioral with suicide precautions) for safety. The patient will participate in group, recreational, and milieu therapies and will be offered additional individual and family sessions as clinically appropriate. -melatonin 3 mg qhs prn for insomnia -nicotine replacement gum prn -therapy referrals -safety planning -continue motivational interviewing regarding alcohol use -repeat EKG on 09/08 to ensure trending improvement in QTc Inventory Assets Strengths: close friends, likes school, supportive family Needs: outpatient therapy, additional coping skills, substance use treatment Risk Factors Assessment : Yes Do You Have Access To A Gun?: No Health Problems: No Mental Health Diagnoses: Yes Substance Use Disorders: Yes Previous Attempt: Yes Family History of Suicide: No Previous Psychiatric Hospitalization: No Hopelessness: No Protective Factors Assessment Employed: Yes Stable Relationships: Yes Supportive Family: Yes Interval History Identifying Information SIDNEY DEL REAL is a 21-year-old woman and [employer] who currently lives in an off-campus apartment, has a history of depression and anxiety, and was admitted on 09/05/21 18:17 on a 201 voluntary commitment for suicide attempt via overdose of alcohol and diphenhydramine. Chief Complaint "I'm good". Review of Systems Sleep Information Total Hours of Sleep: 7.5 Sleep Comments: pt on q-15 minute checks Meal Information Percent Meal Consumed - Breakfast: 100 Percent Meal Consumed - Lunch: 75 Percent Meal Consumed - Dinner: 100 Subjective Subjective Patient was seen & assessed and interval progress reviewed with treatment team nursing and social work. Tearful last night but no SI. Today had family meeting which she feels went well. She reviewed suicide notes and processed this with our unit counselor. She wasn't sure what to expect from the suicide notes but felt like they didn't give a reason which adds a bit to the uncertainty of knowing why the events transpired as they did. We spent time processing this and what will be different in the future including having her safety plan and starting therapy. She feels like it's been helpful to process her emotions and that this will help her better understand her behaviors. Continues to deny any SI or thoughts of self-harm. She remains motivated to avoid alcohol use or significantly limit intake after discharge. Physical Exam Psychiatric Orientation: alert Apperance: appropriately dressed and appropriately groomed Eye Contact: good eye contact Motor Behavior: no abnormal motor movements Speech: normal rate/rhythm/volume of speech Affect: euthymic affect Mood: no depressed mood and no anxious mood Thought Process: goal directed thought process Thought Content: reality based without delusions Suicidal Thoughts: denies suicidal thoughts Homicidal Thoughts: denies homicidal thoughts Hallucinations: no auditory hallucinations and no visual hallucinations Cognition: recent memory grossly intact, remote memory grossly intact, attention grossly intact and language grossly intact Estimated Intelligence: consistent with education level Insight: + fair insight Judgement: + fair judgement Vital Signs (Past 24 Hours) Last Vital Signs Temp 36.8 C 09/08/21 06:32 Pulse 91 H 09/08/21 06:32 Resp 16 09/08/21 06:32 BP 104/68 09/08/21 06:32 Pulse Ox 96 09/05/21 18:21 Results & Data ([facility]) Current Inpatient Medications Current Inpatient Medications: Current Inpatient Medications Acetaminophen (Acetaminophen 325 Mg Tab) 650 mg PO Q4H PRN PRN Reason: Headache or Minor Fever Stop: 10/05/21 18:16 Al Hydrox/Mg Hydrox/Simethicone (Aluminum/Magnesium Susp 30 Ml Udc) 30 ml PO Q4H PRN PRN Reason: GI Upset Stop: 10/05/21 18:16 Bismuth Subsalicylate (Bismuth Subsalicylate Liqd 236 Ml) 15 ml PO PRN PRN PRN Reason: Loose Stool Stop: 10/05/21 18:16 Hydroxyzine HCl (Hydroxyzine Hcl 25 Mg Tab) 50 mg PO HSZ PRN PRN Reason: Insomnia Stop: 10/05/21 18:16 Hydroxyzine HCl (Hydroxyzine Hcl 25 Mg Tab) 25 mg PO Q4H PRN PRN Reason: Anxiety Stop: 10/05/21 18:16 Magnesium Hydroxide (Magnesium Hydroxide Susp 30 Ml Udc) 30 ml PO DAILY PRN PRN Reason: Constipation Stop: 10/05/21 18:16 Melatonin (Melatonin 3 Mg Tab) 3 mg PO HS PRN PRN Reason: Sleep Stop: 10/06/21 12:02 Nicotine Polacrilex (Nicotine Polacrilex 2 Mg Gum) 1 piece MT PRN PRN PRN Reason: nicotine craving Stop: 10/06/21 12:02 Last Admin: 09/06/21 18:01 Dose: 1 piece Documented by: Sodium Chloride (Sodium Chloride 0.65% Na Soln 45 Ml ([place])) 1 - 2 sprays NA PRN PRN PRN Reason: Nasal Dryness/Congestion Stop: 10/05/21 18:16 Mental Health & Subst Abuse Tx Therapist Name of Therapist: [facility] Therapist's Date of Therapist Appointment: 09/14/21 Time of Therapist Appointment: 4:30 p.m. Therapy Appointment Comment: In office - [address] [place] [address], [address], [place] [facility] Discharge Appointments Primary Care Physician Name Of Family Doctor: Bonnie - Dr. [facility] Date of Appointment with PCP: 09/15/21 Time of Appointment with PCP: 11am Provider Appointment Comment: [facility] Contact Information Discharge Discharge Address: [address] [place] [address], [facility]
[2021-09-09 06:11] VITALS: TEMP 97.7
--- NOTE | 2021-09-09 09:49 | Discharge Summary ---
Date of Service September 09, 2021 History of Present Illness Ann presents for psychiatric admission after a suicide attempt. She recalls going to a friend's birthday democr[place] on Tuesday night and drinking her usual amount of alcohol with friends but then cannot recall returning to her apartment or the events that subsequently transpired. Based on discussions after arriving to the ED she understands that she returned to her apartment early on Tuesday morning after drinking and then in the morning she was found by her roommate and was throwing up and choking so her roommate called 911. On arrival police and paramedics found that Ann had written various suicide notes on post-its beside her bed and stated she had taken approximately 7-10 tabs of an OTC sleep aid containing diphenhydramine. On assessment in the ED after she became clinically sober and medically stabilized she endorsed some symptoms of depression including tearfulness, helplessness/hopelessness, low self-esteem, poor functioning and decreased motivation. Today she describes feeling "overwhelmed and stressed" from the attempt and bec omes tearful describing feeling "guilty" for putting her friends and family through the fear and scariness of her attempt. She does not recall the content of the suicide notes nor have any more recollections regarding the attempt. She notes she has no idea what may have prompted it as she doesn't recall any specific stressors or triggers besides being intoxicated. She endorses some depression, which gets worse in the winter months, but states "it's not 24/7". Today denies hopelessness, helplessness but does endorse symptoms of worthlessness, periods of guilt, insomnia, variable appetite. Denies changes in interest, concentration, energy level, nor motivation. She recalls one prior episode of SI which was passive and occurred about 2 months ago after a friend was talking her own SI. She was able to distract herself by spending time with friends and it went away. She denies any prior attempts. Reviewed that a roommate had shared with emergency responders that about 1 month ago she took t he screen out of her third floor window while intoxicated and was talking about considering jumping. She did not know that this had occurred. She identifies the only recent stressors as colder weather and an unexpected break-up about 3 months ago with her boyfriend who was a big emotional support. She also notes difficulty talking about her emotions and that "it's hard to put words to what I'm feeling". Psychiatric ROS notable for no hx lise, no hx lise, no hx OCD, hx social anxiety, hx panic attacks (last in high school), no hx trauma, no hx psychosis, no hx eating disorder. Physical Exam Vital Signs (Past 24 Hours) Last Vital Signs Temp 36.5 C 09/09/21 06:00 Pulse 99 H 09/09/21 06:10 Resp 16 09/09/21 06:00 BP 101/65 09/09/21 06:10 Pulse Ox 96 09/05/21 18:21 See admission H&P and DOD summary. Principal Diagnosis Major Depressive Disorder, recurrent episode with seasonal pattern Psychiatric Data See daily stay summary. In short, patient was engaged with the social/therapeutic milieu of the unit, safety was maintained and the patient was cooperative with care. Ann declined starting any medications during her stay; discussed option to consider SSRI medication in the future for anxiety and depression, melatonin if desired for insomnia or she could consider mirtazapine or trazodone and also reviewed medication assisted treatment options including naltrexone or acamprosate which could be considered if she has difficulty reducing her alcohol use. Also reviewed recommendations regarding use of bright light therapy from early April through late December to help manage seasonal component of her depression. A family session was held and safety plan was completed prior to discharge. We also reviewed the option to use a mobile melissa sa fety plan to ensure it is easily accessible if or when needed in the future. As part of safety planning confirmed that sleep aid medication was removed from her apartment. She had an outpatient therapy appointment set up but on the morning of discharge we were notified that her insurance was not accepted by this provider. Ann still desired to leave and her parents were in agreement with this. She was provided with information about telehealth therapy resources and calls were made requesting that [facility] review her for possible referral to begin with one of their therapists if appropriate and available. If so [facility] will reach out to Ann to schedule this. Motivational interviewing was done throughout her admission and Ann is motivated to reduce or avoid alcohol use after discharge. Day of Discharge Assessment Today the patient voices readiness for discharge. They note improvement in mood and anxiety. They deny thoughts of harm to self or others. Thoughts are organized and they are clinically improved from admission. There is no evidence of psychosis. They improved in the hospital with support. They agree to take medications as prescribed and keep follow-up appointments. At the time of the discharge they are deemed to be stable and appropriate for outpatient level of care. They are not deemed to be at imminent risk of harm to self or others. They are aware of emergency and crisis services. Knows to call 911 or go to nearest emergency care center if in a crisis which cannot be handled as an outpatient. Transition of Care Transition Of Care Record: was reviewed with the patient Advance Directives Advance Directives Information Provided: Yes Advance Directives: No Mental Health Advance Directive: No Advance Directives on File: No Living Will: No Power of Music Library Assistant: No Advance Directives Reason:: Declines as Mental Health Visit. Risk Factors Assessment Acute risk is low given consistent denial of SI during her admission, improvement in mood and affect, engagement with safety planning and willingness to avoid or reduce alcohol use after discharge. Chronic risk is low to moderate given a few non-modifiable risk factors of prior attempt and psychiatric diagnoses but she also has a multitude of protective factors including strong social support, full-time student and no hx of trauma. : Yes Do You Have Access To A Gun?: No Health Problems: No Mental Health Diagnoses: Yes Substance Use Disorders: Yes Previous Attempt: Yes Family History of Suicide: No Previous Psychiatric Hospitalization: No Hopelessness: No Protective Factors Assessment Employed: Yes Stable Relationships: Yes Supportive Family: Yes Discharge Data Lab Results 09/05/21 09/05/21 09/05/21 09:37 09:38 09:38 WBC RBC Hgb Hct MCV MCH MCHC RDW Std Deviation RDW Coeff of Fransisca Plt Count MPV Immature Gran % (Auto) Neut % (Auto) Lymph % (Auto) [place] % (Auto) Eos % (Auto) Baso % (Auto) Neut # (Auto) Lymph # (Auto) [place] # (Auto) Eos # (Auto) Baso # (Auto) Immature Gran # (Auto) PT INR APTT PTT Ratio Sodium Potassium Chloride Carbon Dioxide Anion Gap BUN Creatinine Est Cr Clr Drug Dosing Est GFR ( Amer) Est GFR (Non-Af Amer) BUN/Creatinine Ratio Glucose POC Glucose 103 H Calcium Magnesium Total Bilirubin AST ALT Alkaline Phosphatase Troponin I Total Protein Albumin Globulin Albumin/Globulin Ratio HCG, Qual Salicylates < 3.0 L Urine Opiates Screen Ur Methadone, Qual Acetaminophen < 3 L Urine Barbiturates Ur Phencyclidine (PCP) U Amphetamin/Meth Scrn MDMA (Ecstasy) Screen U Benzodiazepines Scrn Ur Cocaine Metabolite U Marijuana (THC) Screen Ethyl Alcohol mg/dL 138.4 H SARS-CoV-2, RNA, NAAT 09/05/21 09/05/21 09/05/21 09:38 09:38 09:38 WBC 3.33 L RBC 4.31 Hgb 13.7 Hct 39.9 MCV 92.6 MCH 31.8 MCHC 34.3 RDW Std Deviation 46.7 H RDW Coeff of Fransisca 13.6 Plt Count 234 MPV 9.5 Immature Gran % (Auto) 0.0 Neut % (Auto) 55.0 Lymph % (Auto) 39.6 [place] % (Auto) 4.5 Eos % (Auto) 0.6 Baso % (Auto) 0.3 Neut # (Auto) 1.83 Lymph # (Auto) 1.32 [place] # (Auto) 0.15 Eos # (Auto) 0.02 Baso # (Auto) 0.01 Immature Gran # (Auto) 0.00 PT INR APTT PTT Ratio Sodium 142 Potassium 3.6 Chloride 113 H Carbon Dioxide 24 Anion Gap 5 BUN 7 Creatinine 0.54 L Est Cr Clr Drug Dosing Not Reportable Est GFR ( Amer) > 150.0 Est GFR (Non-Af Amer) 135.8 BUN/Creatinine Ratio 13.0 Glucose 96 POC Glucose Calcium 8.3 L Magnesium Total Bilirubin 0.3 AST 16 ALT 10 Alkaline Phosphatase 20 L Troponin I < 0.03 Total Protein 7.2 Albumin 4.4 Globulin 2.8 Albumin/Globulin Ratio 1.6 HCG, Qual Negative Salicylates Urine Opiates Screen Ur Methadone, Qual Acetaminophen Urine Barbiturates Ur Phencyclidine (PCP) U Amphetamin/Meth Scrn MDMA (Ecstasy) Screen U Benzodiazepines Scrn Ur Cocaine Metabolite U Marijuana (THC) Screen Ethyl Alcohol mg/dL SARS-CoV-2, RNA, NAAT 09/05/21 09/05/21 09/05/21 09:38 09:38 09:43 WBC RBC Hgb Hct MCV MCH MCHC RDW Std Deviation RDW Coeff of Fransisca Plt Count MPV Immature Gran % (Auto) Neut % (Auto) Lymph % (Auto) [place] % (Auto) Eos % (Auto) Baso % (Auto) Neut # (Auto) Lymph # (Auto) [place] # (Auto) Eos # (Auto) Baso # (Auto) Immature Gran # (Auto) PT 10.7 INR 1.1 APTT 24.2 PTT Ratio 0.9 Sodium Potassium Chloride Carbon Dioxide Anion Gap BUN Creatinine Est Cr Clr Drug Dosing Est GFR ( Amer) Est GFR (Non-Af Amer) BUN/Creatinine Ratio Glucose POC Glucose Calcium Magnesium 2.0 Total Bilirubin AST ALT Alkaline Phosphatase Troponin I Total Protein Albumin Globulin Albumin/Globulin Ratio HCG, Qual Salicylates Urine Opiates Screen Ur Methadone, Qual Acetaminophen Urine Barbiturates Ur Phencyclidine (PCP) U Amphetamin/Meth Scrn MDMA (Ecstasy) Screen U Benzodiazepines Scrn Ur Cocaine Metabolite U Marijuana (THC) Screen Ethyl Alcohol mg/dL SARS-CoV-2, RNA, NAAT NEGATIVE 09/05/21 09/05/21 10:35 16:03 WBC RBC Hgb Hct MCV MCH MCHC RDW Std Deviation RDW Coeff of Fransisca Plt Count MPV Immature Gran % (Auto) Neut % (Auto) Lymph % (Auto) [place] % (Auto) Eos % (Auto) Baso % (Auto) Neut # (Auto) Lymph # (Auto) [place] # (Auto) Eos # (Auto) Baso # (Auto) Immature Gran # (Auto) PT INR APTT PTT Ratio Sodium Potassium Chloride Carbon Dioxide Anion Gap BUN Creatinine Est Cr Clr Drug Dosing Est GFR ( Amer) Est GFR (Non-Af Amer) BUN/Creatinine Ratio Glucose POC Glucose Calcium Magnesium 2.0 Total Bilirubin AST ALT Alkaline Phosphatase Troponin I Total Protein Albumin Globulin Albumin/Globulin Ratio HCG, Qual Salicylates Urine Opiates Screen Neg Ur Methadone, Qual Neg Acetaminophen Urine Barbiturates Neg Ur Phencyclidine (PCP) Neg U Amphetamin/Meth Scrn Neg MDMA (Ecstasy) Screen Neg U Benzodiazepines Scrn Neg Ur Cocaine Metabolite Neg U Marijuana (THC) Screen Neg Ethyl Alcohol mg/dL SARS-CoV-2, RNA, NAAT Hospital Course (1) Major depressive disorder, recurrent episode with seasonal pattern: (2) Alcohol dependence, binge pattern: 09/08/21: Family meeting held. Continuing to process events leading to attempt and hospitalization and working on CBT skills and coping strategies. Discussed ways to process hospitalization and events with her friends and family. EKG completed and QTc now within normal limits. 09/07/21: Working on coping skills and healthy ways to express emotions. Completed safety plan. Willing to cut down and limit her alcohol use. 09/06/21: The patient was admitted to the [facility] ([facility] inpatient mental health unit) on q15 min checks (behavioral with suicide precautions) for safety. The patient will participate in group, recreational, and milieu therapies and will be offered additional individual and family sessions as clinically appropriate. -melatonin 3 mg qhs prn for insomnia -nicotine replacement gum prn -therapy referrals -safety planning -continue motivational interviewing regarding alcohol use -repeat EKG on 09/08 to ensure trending improvement in QTc Mental Health & Subst Abuse Tx Therapist Name of Therapist: [facility] Date of Therapist Appointment: 09/14/21 Time of Therapist Appointment: 4:30 p.m. Therapy Appointment Comment: In office - [address] [place] [address], [address], [place] Therapist Release of Information: Obtained, Reviewed and Signed Post Discharge Appointments Primary Care Physician Name Of Family Doctor: [facility] Date of Appointment with PCP: 09/15/21 Time of Appointment with PCP: 11am Provider Appointment Comment: [facility] Release of Information: Obtained, Reviewed and Signed Other #1: Name of Aftercare Appointment: [facility] - Rosy Fairchild Phone Number of Aftercare Appointment: [phone] Date of Aftercare Appointment: 09/10/21 Time of Aftercare Appointment: 10:30 a.m. Aftercare Appointment Comment: Please check email for telehealth link to the meeting #2: Name of Aftercare Appointment: [facility] Phone Number of Aftercare Appointment: [phone] Aftercare Appointment Comment: 5th Floor, [facility] #3: Name of Aftercare Appointment: Potential Psychiatry Option: [facility] Phone Number of Aftercare Appointment: [phone] Aftercare Appointment Comment: [address] [facility] #4: Name of Aftercare Appointment: Potential Psychiatry Option: [facility] Phone Number of Aftercare Appointment: [phone] Aftercare Appointment Comment: [address] [facility] Contact Information Discharge Discharge Address: [address] [place] [id number] Discharge Plan Discharge Items Patient Disposition: Home - Self-Care Reason For Visit: SUICIDAL WITH OD ATTEMPT Discharge Diagnosis: Major Depressive Disorder, recurrent episode with seasonal pattern Activity: Resume your previous activity Non-emergency contact: Primary Care Provider and Therapist Call non-emergency contact if: you have any medication questions and your symptoms worsen Follow-up/Referrals: [facility] [Primary Care Provider] - Diet: Regular Addtl Attending Provider Instructions: SPECIAL CARE INSTRUCTIONS: 1. Follow through with your scheduled aftercare appointments. If unable to keep an appointment, please call to reschedule. 2. Take your medication only as prescribed. Medication should not be changed or stopped without the approval of your doctor. In the event of worsening symptoms or concerns about side effects, contact your doctor immediately. 3. Utilize new healthy coping skills, anger management skills, and stress management skills learned during your hospitalization. Journal feelings and process them with a support person. Identify stressors or situations that may result in relapse, deterioration or inappropriate behaviors and develop a plan to deal with those issues. 4. If your coping skills are ineffective and you are in crisis, contact your outpatient providers for direction. If unable to reach your providers, please call the [facility] CRISIS LINE AT , go to the [facility] walk-in center at [address] [facility] [address], [place], or go to the closest Emergency Room. 5. Avoid alcohol and un-prescribed drugs. 6. You have been provided with the Mental Health Advance Directives Pamphlet for your review. 7. Your condition is stable for discharge to outpatient level of care, but recovery is an ongoing process. Ifthoughts to harm yourself or others return, follow the safety plan developed during your stay. Planning for a safe return home includes securing weapons. Our treatment team recommends weaponsbe removed from the home until your outpatient provider reassesses your progress. In rare cases where the items themselvescannot be removed, guns and ammunitionshould be secured separatelyand keys stored by a reliable personoutside of the home. If you were admitted on an involuntary commitment, the police or other legal authorities may be involved in this process. AFTERCARE APPOINTMENTS: * Please call your insurance company prior to your scheduled appointment to confirm your aftercare providers are covered. Take your insurance information to your appointments. WHO TO CALL AND WHEN: Medical Emergencies: For questions or emergencies related to your hospital stay, please contact the Inpatient Behavioral Health Unit at [phone]. A shipping assistant is on-call 07/03 for the Behavioral Health Unit for emergencies At any time you feel your situation is an emergency, you may also call 911 immediately. Pending Studies at Discharge: No Stand-Alone Forms: My [facility], Smoking Cessation Medications and DC Order Prescriptions: Discontinued spironolactone 100 mg Tablet 100 mg PO DAILY RF: 0 Discharge Orders: Discharge Order (Routine); Ordered 09/09/21 Ordered By: Nita Terry/Other Patient Handouts: Journaling for Mental Health, Depression: Tips to Help Yourself, Seasonal Affective Disorder or SAD Admission Data Admit Date/Time: 09/05/21 18:17 Attending Provider: Nita Kent Admit Provider: Nita Kent Primary Care Provider: [facility] Other Interventions: Discharge Summary Assessment (RN) Last Done: 09/09/21 10:05 PSY Interdisciplinary Discharge Planning Last Done: 09/09/21 10:05 Coding Level of Care Code 24193 D/C day mgmt > 30 min Diagnoses Major depressive disorder, recurrent episode with seasonal pattern F33.9 Alcohol dependence, binge pattern F10.20 Time Spent (min) 35
[2021-09-09 10:09] VITALS: BP 115/76; PULSE 91
== END 2021-09-09 13:15 | disposition home or self-care (01) | DRG 885 ==
LOC: ED 09:02 → 3S 18:17